=== PATIENT | male | born 1960 ===

== ENCOUNTER 2018-01-31 09:40 | Emergency (ER) | payer OTHER ==
[2018-01-31 09:45] VITALS: BP 147/84; PULSE 85; TEMP 97; O2SAT 97; BMI 22.1
--- NOTE | 2018-01-31 10:36 | ED PDOC ---
HPI: Male Pain Time Seen by Provider: 01/31/18 09:53 Chief Complaint (Nursing): Male Genitourinary Chief Complaint (Provider): Male Genitourinary History Per: Patient History/Exam Limitations: no limitations Onset/Duration Of Symptoms: Days (x 1) Associated Symptoms: denies: Fever Additional Complaint(s): 57 years old male with history of BPH presents to the ED with complaints of abdominal pain started last night status post fall replacement for urinary retention. Patient denies experiencing fever. PMD: Yan Hernández Past Medical History Reviewed: Historical Data, Nursing Documentation, Vital Signs Vital Signs: Last Vital Signs Temp 97 F L 01/31/18 09:44 Pulse 85 01/31/18 09:44 Resp BP 147/84 01/31/18 09:44 Pulse Ox 97 01/31/18 09:44 - Medical History PMH: Benign Prostatic Hyperplasia - Surgical History Surgical History: No Surg Hx - Family History Family History: States: Unknown Family Hx - Allergies Allergies/Adverse Reactions: Allergies Allergy/AdvReac Type Severity Reaction Status Date / Time No Known Allergies Allergy Verified 01/31/18 09:51 Review of Systems ROS Statement: Except As Marked, All Systems Reviewed And Found Negative Constitutional: Negative for: Fever Gastrointestinal: Positive for: Abdominal Pain Physical Exam - Reviewed Nursing Documentation Reviewed: Yes Vital Signs Reviewed: Yes - Physical Exam Appears: Positive for: Non-toxic, No Acute Distress Head Exam: Positive for: ATRAUMATIC, NORMOCEPHALIC Skin: Positive for: Normal Color Gastrointestinal/Abdominal: Positive for: Distended (suprapubic), Other (Fully irrigated with clearance and normal urine drainage of 900 cc.) Neurologic/Psych: Positive for: Alert, Oriented - ECG O2 Sat by Pulse Oximetry: 97 (RA) Pulse Ox Interpretation: Normal Medical Decision Making Medical Decision Making: Time: 1040 New leg bag is attached. Scribe Attestation: Documented by Deanne Miles, acting as a scribe for Vimal Carter MD Provider Scribe Attestation: All medical record entries made by the Scribe were at my direction and personally dictated by me. I have reviewed the chart and agree that the record accurately reflects my personal performance of the history, physical exam, medical decision making, and the department course for this patient. I have also personally directed, reviewed, and agree with the discharge instructions and disposition. Disposition - Clinical Impression Clinical Impression: Bernardo catheter problem - Patient ED Disposition Is Patient to be Admitted: No Counseled Patient/Family Regarding: Diagnosis, Need For Followup - Disposition Referrals: Yan Hernández MD [Medical Doctor] - Disposition: Routine/Home Disposition Time: 10:00 Condition: FAIR Additional Instructions: Return tomorrow for regularly scheduled surgery Instructions: How to Care for Your Bernardo Catheter, Male Forms: [facility] (Tristanian) Print Language: PORTUGUESE
== END 2018-01-31 10:57 | disposition home or self-care (01) ==
LOC: H.ER 09:40
DX: Z46.6 Encounter for fitting and adjustment of urinary device (principal); N40.0 Benign prostatic hyperplasia without lower urinary tract symptoms

== ENCOUNTER 2018-02-01 08:58 | Day surgery (SDC) | payer SELFPAY ==
[2018-02-01 09:26] VITALS: BMI 23.8
[2018-02-01] MEDS ORDERED: Lactated Ringer's 1,000 ML IV ONE (10:10)
[2018-02-01] MEDS ORDERED: cefTRIAXone (Rocephin) 1 gm Inj ONE (10:40)
[2018-02-01] MEDS ORDERED: Lidocaine 2% Jelly (Uro-Jet) ONE (10:40)
[2018-02-01] MEDS ORDERED: Propofol 10 mg/ml Inj (20 ML) ONE (11:15)
[2018-02-01] MEDS ORDERED: Midazolam 2 MG/2 ML VIAL ONE (11:16)
[2018-02-01] MEDS ORDERED: Rocuronium 10 mg/ml (5 ml) ONE (11:16)
[2018-02-01] MEDS ORDERED: Sodium Chloride 0.9% 3,000 ML IV ONE (11:50)
[2018-02-01] MEDS ORDERED: HYDROmorphone 0.5 mg/0.5 ml ISec IVP PRN (12:25)
[2018-02-01 12:47] VITALS: RESP 18
[2018-02-01 13:52] VITALS: O2SAT 97
[2018-02-01 15:35] VITALS: BP 106/67; PULSE 70; TEMP 98.6
--- NOTE | 2018-02-09 21:29 | OP ---
PROCEDURE DATE: 02/01/2018 PREOPERATIVE DIAGNOSIS: Benign prostatic hypertrophy with urinary retention. POSTOPERATIVE DIAGNOSIS: Benign prostatic hypertrophy with urinary retention. PROCEDURE PERFORMED: GreenLight laser of the prostate. DESCRIPTION OF PROCEDURE: The patient was placed on the operating room table in a dorsal lithotomy position. The area of the groin was draped and prepped in a sterile manner. Using a laser scope, I entered into the bladder atraumatically and under direct vision. At this time, I identified the ureteral orifices and the verumontanum. Deploying the laser fiber, I cauterized the verumontanum area first as a point of distal resection and then I began to resect the middle lobe followed by the right and left lateral lobes. At the end of the procedure, there was a wide opening from the verumontanum into the bladder. Ureteral orifices were at the end re-identified. The verumontanum was circumferentially intact and estimated blood loss to be less than 10 mL. A #22 three-way Bernardo catheter was then inserted. CBI was begun prior to the patient leaving the operating room and the urine was clear. Yan Hernández MD
== END 2018-02-01 15:45 | disposition home or self-care (01) ==
LOC: H.OPSURG 08:58
PROVIDERS: ATTEND Urology
DX: N40.1 Benign prostatic hyperplasia with lower urinary tract symptoms (principal); R33.8 Other retention of urine; Z87.891 Personal history of nicotine dependence
CPT/HCPCS: 52648; J0696; J1170; J2001; J2250; J2704; J2765; J3010; J7030; J7040; J7120